=== PATIENT | male | born 1975 | race African-American/Black ===

== ENCOUNTER 2018-09-13 17:54 | Emergency (ER) | payer OTHER ==
[~2018-09-13] VITALS: Ht 190.5 cm; Wt 99.8 kg
[2018-09-13] MEDS ORDERED: ZYPREXA20 MG ORAL (18:02)
[2018-09-13] MEDS ORDERED: BENZTROPINE ME0.5 MG PO (18:02)
[2018-09-13] MEDS ORDERED: DEPAKOTE500 MG PO (18:02)
[2018-09-13] MEDS ORDERED: AMOXICILLIN500 MG ORAL (18:23)
[2018-09-13] MEDS ORDERED: TYLENOL EXTRA500 MG ORAL (18:23)
[2018-09-13] MEDS ORDERED: Acetaminophen 500mg (ES) tab ORAL ONE (18:30)
[2018-09-13] MEDS ORDERED: Dexamethasone 4mg/ml vial IM ONE (18:30)
--- NOTE | 2018-09-13 18:32 | NUR ---
ED Nurse Note: pt states sore throat and bilat earaches. pt tolerates meds well. pt without dyspnea or cough noted. a/ox4
[2018-09-13 18:38] VITALS: BP 149/88
--- NOTE | 2018-09-13 18:41 | NUR ---
ER DISCHARGE NOTE: Patient is cleared to be discharged per ERMD, pt is aox4, on room air, with stable vital signs. pt was given dc and prescription instructions, pt was able to verbalize understanding, pt id band removed without complications. pt is able to ambulate with steady gait. pt took all belongings.
--- NOTE | 2018-09-13 18:44 | Emergency Room Report ---
History of Present Illness General Chief Complaint: Fever Source: Patient Present Illness HPI 42-year-old male presents ED for evaluation. Patient presents complaining of sore throat, fever for the last 3 days. Temp 100.8 in triage. States pain is throbbing, 9 out of 10, nonradiating. Notes difficulty swallowing. Denies cough. Denies sick contacts or recent travel. No other aggravating relieving factors. Denies any other associated symptoms Allergies: Coded Allergies: IODINE (Verified Allergy, Unknown, 09/13/18) Patient History Past Medical History: psych hx Past Surgical History: none Pertinent Family History: none Social History: Denies: smoking, alcohol use, drug use Immunizations: UTD Reviewed Nursing Documentation: PMH: Agreed; PSxH: Agreed Nursing Documentation-PMH Past Medical History: No History, Except For History Of Psychiatric Problem: Yes Review of Systems All Other Systems: negative except mentioned in HPI Physical Exam Vital Signs Date Time Temp Pulse Resp B/P (MAP) Pulse Ox O2 Delivery O2 Flow Rate FiO2 09/13/18 17:58 100.8 123 24 149/88 (108) 95 Room Air Sp02 EP Interpretation: reviewed, normal General Appearance: no apparent distress, alert, GCS 15, non-toxic Head: normocephalic Eyes: bilateral eye normal inspection, bilateral eye PERRL ENT: hearing grossly normal, no angioedema, normal voice, pharyngeal erythema, other - poor light reflex bilateral TM Neck: full range of motion, supple, no meningismus, supple/symm/no masses Respiratory: normal inspection Cardiovascular #1: normal inspection Gastrointestinal: normal inspection Rectal: deferred Genitourinary: no CVA tenderness Musculoskeletal: normal inspection Neurologic: alert, oriented x3, responsive, motor strength/tone normal, sensory intact, speech normal Psychiatric: normal inspection Skin: normal inspection Lymphatic: adenopathy Medical Decision Making Diagnostic Impression: Primary Impression: Pharyngitis Qualified Codes: J02.9 - Acute pharyngitis, unspecified ER Course Hospital Course 42-year-old male presents to ED complaining of sore throat + fever Differential diagnoses include: URI, pharyngitis, otitis media Clinical course Patient placed on stretcher. After initial history, physical exam reveals a young male in no acute distress. Bilateral TM poor light relfex. There is pharyngeal erythema w/o tonsillar exudates. Noted lymphadenopathy. Clinical findings consistent with pharyngitis. discussed findings with patient. Given Decadron here. Given amoxicillin and Tylenol. Safe for discharge with close outpatient follow-up. Will provide referrals Diagnosis - pharyngitis Stable and discharged home with prescriptions for tylenol, amoxicillin. Instructed to followup with PMD. return to ED if symptoms recur or worsen Last Vital Signs Date Time Temp Pulse Resp B/P (MAP) Pulse Ox O2 Delivery O2 Flow Rate FiO2 09/13/18 18:38 100.8 90 24 149/88 97 Room Air Status: improved Disposition: HOME, SELF-CARE Condition: Stable Scripts Acetaminophen* (TYLENOL EXTRA STRENGTH*) 500 Mg Tablet 500 MG ORAL Q8H PRN for Prn Headache/Temp > 101, #30 TAB 0 Refills Prov: Checo Small MD 09/13/18 Amoxicillin* (AMOXIL*) 500 Mg Capsule 500 MG ORAL EVERY 8 HOURS for 7 Days, CAP Prov: Checo Small MD 09/13/18 Referrals: Scarlet Fernandez. [facility] Patient Instructions: Pharyngitis, [id number] Checo Small MD Sep 13, 2018 18:43
== END 2018-09-13 18:38 | disposition home or self-care (01) ==
LOC: EMR 18:20
DX: J02.9 Acute pharyngitis, unspecified (principal); Z91.041 Radiographic dye allergy status
CPT/HCPCS: 96372; 99283; J1100